=== PATIENT | female | born 1950 | race American Indian/Alaskan Native ===

== ENCOUNTER 2017-02-06 10:33 | Day surgery (SDC) | payer BC ==
[2017-02-06] MEDS ORDERED: WATER FOR IRRIG STERILE IR ONE (12:00)
[2017-02-06] MEDS ORDERED: NACL 0.9% 1000 ML 1,000 ML IV SCH (12:00)
[2017-02-06] MEDS ORDERED: WATER FOR IRRIG STERILE ONE (12:01)
--- NOTE | 2017-02-06 12:42 | Anesthesia Day of Surgery ---
Anesthesia Day of Surgery - Day of Surgery Patient Examined: Yes Patient H&P Reviewed: Yes Patient is NPO: Yes
--- NOTE | 2017-02-06 12:42 | Anesthesia Consultation ---
Anesthesia Consult and Med Hx Date of service: 02/06/17 - Airway Anesthetic Teeth Evaluation: Good ROM Head & Neck: Adequate Mental/Hyoid Distance: Adequate Mallampati Class: Class III Intubation Access Assessment: Possibly Difficult - Pulmonary Exam CTA: Yes - Cardiac Exam Cardiac Exam: RRR - Pre-Operative Health Status ASA Pre-Surgery Classification: ASA2 Proposed Anesthetic Plan: MAC - Pulmonary Hx Smoking: Yes Hx Asthma: No Hx Sleep Apnea: No - Cardiovascular System Hx Hypertension: Yes - Central Nervous System Hx Psychiatric Problems: No - Gastrointestinal Hx Gastroesophageal Reflux Disease: Yes - Hematic Hx Anemia: No - Other Systems Hx Cancer: No
[2017-02-06] MEDS ORDERED: DIPRIVAN 10 MG/ML IV ONE ×2 (12:55)
--- NOTE | 2017-02-06 13:17 | History and Physical Report ---
HISTORY OF PRESENT ILLNESS: The patient is a 66-year-old -Citizen Of [place] female who has underlying history of hypertension, prior history of colon polyps, had a colonoscopy done a few years earlier when she was noted to have a tubular adenoma. EGD also done a few years earlier and had shown presence of Alethea esophagitis. She is to have an EGD done for dyspeptic symptoms and colonoscopy to make sure that there is not any recurrence of any polyps. PAST MEDICAL HISTORY: Significant for hypertension, hyperlipidemia. MEDICATIONS: She normally uses include Dexilant, Crestor. SOCIAL HISTORY: She admits to smoking and has been advised not to do so. Denies any history of alcohol use. No cardiac issues. No flu shot. ALLERGIES: No known allergies. PHYSICAL EXAMINATION: GENERAL: She is afebrile. VITAL SIGNS: Blood pressure is 181/91, pulse is 63. Height is 5.1, weight is 158 pounds. HEENT: Shows no JVD. LUNGS: Clear to auscultation. CARDIOVASCULAR: Normal. ABDOMEN: Soft. Bowel sounds present. NEUROLOGIC: The patient is otherwise alert and oriented. IMPRESSION: History of colon polyp with a tubular adenoma, prior history of Alethea esophagitis, history of hypertension, hyperlipidemia. PLAN: To do a colonoscopy and EGD at [facility] on 02/06/2017. JOB# [id number] CASSI/TAE
--- NOTE | 2017-02-06 13:44 | Procedure Note ---
Date of procedure: 02/06/17 Pre-op diagnosis: Dyspepsia/ H/O Colon Polyp Post-op diagnosis: other (Mild,Distal esophagitis/Gastritis/Small,Cecal Polyps/ Minor,Internal Hemorrhoid) Anesthesia: MAC Surgeon: WILDA THOMPSON Estimated blood loss: minimal Pathology: list Condition: stable Disposition: same day
[2017-02-06 14:49] VITALS: BP 149/68
--- NOTE | 2017-02-06 15:05 | Operative Report ---
NAME OF PROCEDURE: Esophagogastroduodenoscopy with biopsy. INDICATIONS: A 66-year-old -[place] female with an underlying history of hypertension, hyperlipidemia, prior history of Alethea esophagitis. She lately had been having some dyspeptic symptoms. EGD was done to assess for the problem. Procedure was done after getting after informed consent with MAC anesthesia. DESCRIPTION OF PROCEDURE: Instrument was passed through hypopharynx into the esophagus, which showed mild distal esophagitis. Stomach showed some antral gastritis. Pylorus is patent. Duodenum in the first and second portion appeared normal. There was no evidence of any gastric or duodenal ulcer present. Biopsy was done from the gastric antrum and the gastric body as well as angular incisure to rule out for H. pylori and atrophic gastritis. There was minimal bleeding from the biopsy sites. No complications associated with the procedure. IMPRESSION: Dyspepsia, mild distal esophagitis, gastritis. No peptic ulcer disease noted. There was minimal bleeding from the biopsy sites. No complications associated with the procedure. Plan is to treat the patient with PPI, have the patient avoid aspirin and aspirin-related products for the next few days. Encouraged the patient to take probiotics and to do a colonoscopy to assess for any colon polyps since she has a prior history of colon polyps and advised the patient to follow up in the office in about 2 weeks' time. Thank you for the kind referral. JOB# [id number] CASSI/TAE
--- NOTE | 2017-02-06 18:01 | Post Anesthesia Evaluation ---
- Post Anesthesia Evaluation Patient Participated: Yes Airway Patent: Yes Stable Respiratory Function: Yes Nausea/Vomiting: No Temp > 96.8F: Yes Pain Manageable: Yes Adequeate Hydration: Yes Anesthesia Complications: No Block Receding Appropriately: Not Applicable Patient on Ventilator: No
--- NOTE | 2017-02-06 18:56 | Operative Report ---
INDICATIONS: This is a 66-year-old -Citizen Of [place] female with an underlying history of hypertension, hyperlipidemia with a prior history of colon polyp. Colonoscopy was done following an EGD because of some dyspeptic symptoms, which showed some mild distal esophagitis and gastritis. PROCEDURE: Colonoscopy done with MAC anesthesia. Initial rectal exam was unremarkable. Instrument was passed through rectum onto the cecum, which was identified at the ileocecal valve and the appendiceal orifice. Visualization was [id number]. Three small polyps noted in the cecum that was removed by cold biopsy. The remaining part of the cecum, ascending colon, transverse colon, descending colon, and sigmoid showed normal mucosa and the rectum showed some minor internal hemorrhoids on the retroverted view. There was minimal bleeding from the biopsy sites. No complications with the colonoscopy. IMPRESSION: Colon polyp screening. A few small cecal polyps noted that were removed by cold biopsy. Mild internal hemorrhoids. The patient will be encouraged to avoid aspirin and aspirin-related products for the next few days and follow up in the office in about 2 weeks' time. The patient will be asked to continue with Dexilant for the upper gastrointestinal findings with some mild distal esophagitis and gastritis, and also encouraged to take probiotics with advice to follow up in 2 weeks. JOB# [id number] CASSI/TAE
== END 2017-02-06 10:34 | disposition home or self-care (01) ==
LOC: GIO 10:33
DX: D12.0 Benign neoplasm of cecum (principal); K64.8 Other hemorrhoids; K29.40 Chronic atrophic gastritis without bleeding; K20.9 Esophagitis, unspecified; E78.5 Hyperlipidemia, unspecified; I10 Essential (primary) hypertension
CPT/HCPCS: 43239; 45380; 88305; 88342; J2704; J7030

== ENCOUNTER 2019-11-25 07:53 | Day surgery (SDC) | payer BC, MEDICARE ==
[~2019-11-25 07:53] MED LIST: SODIUM CHLORIDE 0.9% 1000 ML 1,000 ML IV SCH; SODIUM CHLORIDE 0.9% 1000 ML 1,000 ML ONE
[2019-11-25] MEDS ORDERED: WATER FOR IRRIG STERILE 250 ML BOTTLE IR ONE (08:05)
--- NOTE | 2019-11-25 08:48 | Anesthesia Day of Surgery ---
Anesthesia Day of Surgery - Day of Surgery Patient Examined: Yes Patient H&P Reviewed: Yes Patient is NPO: Yes
--- NOTE | 2019-11-25 08:48 | Anesthesia Consultation ---
Anesthesia Consult and Med Hx Date of service: 11/25/19 - Airway Anesthetic Teeth Evaluation: Good ROM Head & Neck: Adequate Mental/Hyoid Distance: Adequate Mallampati Class: Class II Intubation Access Assessment: Probably Good - Pulmonary Exam CTA: Yes - Cardiac Exam Cardiac Exam: RRR - Pre-Operative Health Status ASA Pre-Surgery Classification: ASA2 Proposed Anesthetic Plan: MAC - Pulmonary Hx Smoking: Yes (quit 1 yr; prev 1/4 PPD) Hx Respiratory Symptoms: No Hx Sleep Apnea: No - Cardiovascular System Hx Hypertension: Yes (took antihypertensive this morning) Hx Heart Attack/AMI: No Hx Percutaneous Transluminal Coronary Angioplasty (PTCA): No Hx Cardia Arrhythmia: No - Central Nervous System CVA: No - Gastrointestinal Hx Gastroesophageal Reflux Disease: Yes - Endocrine Hx Renal Disease: No Hx Liver Disease: No Hx Insulin Dependent Diabetes: No Hx Non-Insulin Dependent Diabetes: No Hx Thyroid Disease: No - Other Systems Hx Obesity: Yes (BMI 30) - Additional Comments Anesthesia Medical History Comments: No hx anesthetic complications.
[2019-11-25] MEDS ORDERED: propofoL 200 MG/20 ML VIAL IV ONE (08:59)
--- NOTE | 2019-11-25 09:30 | Procedure Note ---
Date of procedure: 11/25/19 Pre-op diagnosis: GERD Post-op diagnosis: other (Mild to Moderate Erosive Esophagitis/ Mild to Moderate Alethea Esophagitis/Gastric Ersoion and Gastritis) Procedure: EGD with Biopsy Anesthesia: MAC Surgeon: WILDA THOMPSON Estimated blood loss: minimal Pathology: list Specimen disposition: to lab Condition: stable Disposition: same day (Treat with PPI and Fluconazole. Avoid aspirin and NSAID for 5 days; otherwise resume home medication and follow up in 1 to 2 weeks ([phone]).)
--- NOTE | 2019-11-25 09:37 | Operative Report ---
PROCEDURE PERFORMED: Esophagogastroduodenoscopy with biopsy. INDICATIONS: This is a 69-year-old -[place] Islander female with an underlying history of hypertension, who has a prior history of Alethea esophagitis, lately has been having GERD symptoms. EGD was done to assess for the GERD symptoms. DESCRIPTION OF PROCEDURE: The procedure was done after getting informed consent with MAC anesthesia. Instrument was passed through the hypopharynx into the esophagus, which showed sdgu-ri-ejhbohwf distal erosive esophagitis as well as bezs-da-eckvidvd Alethea esophagitis. Biopsy was done from the distal esophagus as well as from the midesophagus to rule out for Alethea esophagitis and to assess for the severity of the erosive esophagitis. The stomach showed Alethea, antral erosion and gastritis, most pronounced in the antrum. Biopsy was done from the gastric antrum, gastric body and angular incisura to rule out for H. pylori and atrophic gastritis. The pylorus was patent. The duodenum in the first and second portion appeared normal. There was minimal bleeding associated with the procedure. No complications associated with the procedure. ASSESSMENT: Gastroesophageal reflux disease symptoms, ghxf-pa-virhcsbh Alethea esophagitis, gastritis, gastric erosion and mvgq-vb-vuttwriw erosive esophagitis. PLAN: Treat the patient with PPI. Give the patient a course of fluconazole. Have the patient follow up in the office in 1-2 weeks' time. The patient will be asked to avoid aspirin and aspirin-related products for the next few days. Otherwise, resume home medication. Follow up in the office in 1-2 weeks. The procedure was done in the GI lab with assistance of the GI lab team, which included SCOUT Penaloza, miguel De Jesus and with assistance of anesthesia. JOB# [id number] CASSI/TAE
--- NOTE | 2019-11-25 10:08 | Post Anesthesia Evaluation ---
- Post Anesthesia Evaluation Patient Participated: Yes Airway Patent: Yes Stable Respiratory Function: Yes Nausea/Vomiting: No Temp > 96.8F: Yes Pain Manageable: Yes Adequeate Hydration: Yes Anesthesia Complications: No
[2019-11-25 10:25] VITALS: BP 162/86
== END 2019-11-25 07:54 | disposition home or self-care (01) ==
LOC: GIO 07:53
DX: K21.00 Gastro-esophageal reflux disease with esophagitis, without bleeding (principal); K29.70 Gastritis, unspecified, without bleeding; B37.81 Candidal esophagitis; E78.00 Pure hypercholesterolemia, unspecified; I10 Essential (primary) hypertension; E66.9 Obesity, unspecified; Z98.890 Other specified postprocedural states; Z79.899 Other long term (current) drug therapy; Z68.30 Body mass index [BMI] 30.0-30.9, adult
CPT/HCPCS: 43239; 88305; 88342; J2704; J7030

== ENCOUNTER 2021-02-28 09:01 | Outpatient (CLI) | payer BC ==
--- NOTE | 2021-02-28 13:21 | Nuclear Medicine Report ---
NUCLEAR MEDICINE BONE SCAN, WHOLE BODY INDICATION: M88.9. Abnormal lab work. 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 No bone pain per the patient. TECHNIQUE: 26.3 mCi of Tc-99m MDP were injected IV. Whole body images were obtained. COMPARISON: No relevant prior imaging study available. FINDINGS: Skeletal Structures: Fairly symmetric, likely degenerative uptake is present involving the shoulders , elbows, wrists, thoracic spine and knees.. Skeletal Lesions: There is abnormal increased radiotracer uptake in multiple areas in the spine and p evangelist. There is rather intense uptake overlying the upper thoracic spine at approximate levels T1-T3. There is diffuse increased uptake at approximate level of L3. There is focal uptake at the approxima te level of L4. There is focal uptake in the right side of the sacrum and left posterior iliac bone. No calvarial lesions. Soft Tissues: Normal. Kidneys: Normal, symmetric activity. Additional Findings: None. IMPRESSION: Multiple areas of increased radiotracer uptake are identified in the thoracic spine, lumbar spine an d pelvis. This pattern is concerning for a metastatic process. The typical bone scan findings of Padg et's disease are not clearly demonstrated. There are no radiographic studies presented for comparison . Consider further evaluation and comparison with CT.. Signer Name: Chandu Briggs Jr, MD Signed: 02/28/2021 1:16 PM Workstation Name: [id number]
== END 2021-02-28 09:02 | disposition home or self-care (01) ==
LOC: NM 09:01
PROVIDERS: ATTEND Internal Medicine Endocrinology, Diabetes & Metabolism
DX: M89.9 Disorder of bone, unspecified (principal); M88.9 Osteitis deformans of unspecified bone
CPT/HCPCS: 78306; A9503

== ENCOUNTER 2021-03-15 06:52 | Day surgery (SDC) | payer BC ==
[~2021-03-15 06:52] MED LIST changes: -SODIUM CHLORIDE 0.9% 1000 ML 1,000 ML IV SCH; -SODIUM CHLORIDE 0.9% 1000 ML 1,000 ML ONE; +WATER FOR IRRIG STERILE 1,000 ML BOTTLE ONE; +WATER FOR IRRIG STERILE 250 ML BOTTLE IR ONE
[2021-03-15] MEDS ORDERED: SODIUM CHLORIDE 0.9% 1000 ML 1,000 ML IV SCH (07:00)
[2021-03-15] MEDS ORDERED: propofoL 200 MG/20 ML VIAL IV ONE ×3 (08:35→09:06)
[2021-03-15] MEDS ORDERED: LIDOCAINE MPF (2%) 20 MG/1 ML VIAL 5 ML ONE (08:35)
--- NOTE | 2021-03-15 09:00 | Anesthesia Consultation ---
Anesthesia Consult and Med Hx Date of service: 03/15/21 - Airway Anesthetic Teeth Evaluation: Good ROM Head & Neck: Adequate Mental/Hyoid Distance: Adequate Mallampati Class: Class II Intubation Access Assessment: Probably Good - Pre-Operative Health Status ASA Pre-Surgery Classification: ASA2 Proposed Anesthetic Plan: General - Pulmonary Hx Smoking: Yes (quit 3 yr; prev 1/4 PPD) Hx Respiratory Symptoms: No - Cardiovascular System Hx Hypertension: Yes (took antihypertensives this morning) Hx Heart Attack/AMI: No Hx Percutaneous Transluminal Coronary Angioplasty (PTCA): No - Central Nervous System CVA: No - Gastrointestinal Hx Gastroesophageal Reflux Disease: No (en esophagitis) - Endocrine Hx Renal Disease: No Hx Liver Disease: No Hx Insulin Dependent Diabetes: No Hx Non-Insulin Dependent Diabetes: No Hx Thyroid Disease: No - Other Systems Hx Obesity: Yes (BMI 30) - Additional Comments Anesthesia Medical History Comments: No hx anesthetic complications.
--- NOTE | 2021-03-15 09:00 | Anesthesia Day of Surgery ---
Anesthesia Day of Surgery - Day of Surgery Patient Examined: Yes Patient H&P Reviewed: Yes Patient is NPO: Yes
--- NOTE | 2021-03-15 09:32 | Procedure Note ---
Date of procedure: 03/15/21 Pre-op diagnosis: Dyspepsai/ H/O Peptic Ulcer Disease/ H/O Alethea Esophagitis/ H/O Colon Corbin Post-op diagnosis: other (Mild to ModerateCandida Esophagitis/ Mild to Moderate Erosive Esophagitis/ Gastric Erosion and Gastritis/ Multiple,Small Colon Polyps in the Proximal colon and the Proximal,Left Colon) Procedure: EGD with biopsy/ Colonoscopy with cold biopsy and use of Heat to fulgurate a polyp using the tip of the polypectomy snare Anesthesia: MAC Surgeon: WILDA THOMPSON Estimated blood loss: minimal Pathology: list Specimen disposition: to lab Condition: stable Disposition: same day (Treat with PPI and Fluconazole. Avoid aspirin, NSAID and anticoagulants for 4 days, othrwise resume home medication and F/U in 1 to 2 weeks ([phone]).)
--- NOTE | 2021-03-15 10:00 | Operative Report ---
DATE OF SURGERY: 03/15/2021 PROCEDURE: Colonoscopy. INDICATIONS: This is a 70-year-old -[place] female who prior to the colonoscopy had an EGD done, which showed acsn-mx-fjvlitsu erosive esophagitis and ixne-pk-mvvflcxh Alethea esophagitis as well as gastric erosion and gastritis. DESCRIPTION OF PROCEDURE: Colonoscopy was done after getting informed consent with MAC anesthesia. Initial rectal examination was unremarkable. The instrument was passed through the rectum onto the cecum, which was identified by the ileocecal valve and the appendiceal orifice. The cecum was also visualized on the retroverted view. There were multiple polyps, which was small, about 7-8 mm in diameter that were noted in the cecum, probably about 5 in number. These were removed by cold biopsy. There was a slightly larger polyp noted in the ascending colon, which was burned using the tip of the polypectomy snare and 2 other smaller similar 7-8 mm polyp also noted in the ascending colon that was removed by cold biopsy. The remaining part of the ascending colon, the transverse colon showed normal mucosa. There was a solitary 7-8 mm polyp noted in the descending colon that was also removed by cold biopsy with minimal bleeding. The remaining part of the left colon showed normal mucosa and the rectum appeared normal on the retroverted view. Multiple colon polyps noted, several in the proximal colon and a solitary one in the proximal descending colon. No diverticular disease or internal hemorrhoids or evidence of colitis was noted. There was minimal bleeding associated with the procedure. No complications associated with the procedure. ASSESSMENT: Colon polyp screening. Multiple colon polyps. No diverticula. No internal hemorrhoids. PLAN: To have the patient avoid aspirin and aspirin-related products. The patient will also be treated with PPI and fluconazole because of the EGD findings of erosive esophagitis, gastric erosion and Alethea esophagitis. The patient will be asked to follow up in the office in 1-2 weeks' time. Procedure was done in the GI lab with assistance of the GI lab team, which included the GI nurse, the die cast technician and with assistance of Anesthesia. TID: [id number] RECEIPT: [id number] KJ/SHE
[2021-03-15 10:15] VITALS: BP 126/69
--- NOTE | 2021-03-15 11:19 | Operative Report ---
DATE OF SURGERY: 03/15/2021 PROCEDURE PERFORMED: Esophagogastroduodenoscopy with biopsy. INDICATIONS: This is a 70-year-old -[place] female with a prior history of peptic ulcer disease. She has lately been having some dyspeptic symptoms. EGD was done to make sure there was not any significant upper GI pathology present. She also has a prior history of Alethea esophagitis. DESCRIPTION OF PROCEDURE: EGD was done after getting informed consent with MAC anesthesia. The instrument was passed through the hypopharynx into the esophagus, which showed mild to moderate Alethea esophagitis in the mid esophagus as well as mild to moderate erosive esophagitis in the distal esophagus. Photodocumentation and biopsies were done from these two areas. The stomach showed antral erosion and gastritis. No ulcers were noted in the stomach within the straight or the retroverted view. The pylorus was patent. The duodenum in the first and second portion appeared normal. Biopsy was done from the gastric antrum, gastric body and angular incisura to rule out for H. pylori and atrophic gastritis. ASSESSMENT: History of peptic ulcer disease, none now; mild to moderate erosive esophagitis, mild to moderate Alethea esophagitis, gastritis, gastric erosion. PLAN: To treat the patient with PPI as well as fluconazole. Have the patient avoid aspirin and aspirin-related products and follow up in the office in 1-2 weeks' time. The patient is also to have a colonoscopy done because of prior history of colon polyps. Procedure was done in the GI lab with the assistance of the GI lab team, which included the GI nurse, the technical mgr and with the assistance of anesthesia. TID: [id number] RECEIPT: [id number] CASSI/STEPHANIE/BOGDAN
== END 2021-03-15 09:50 | disposition home or self-care (01) ==
LOC: GIO 06:52
DX: Z12.11 Encounter for screening for malignant neoplasm of colon (principal); K63.89 Other specified diseases of intestine; K31.89 Other diseases of stomach and duodenum; D12.4 Benign neoplasm of descending colon; D12.0 Benign neoplasm of cecum; D12.2 Benign neoplasm of ascending colon; K27.9 Peptic ulcer, site unspecified, unspecified as acute or chronic, without hemorrhage or perforation; B37.81 Candidal esophagitis; I10 Essential (primary) hypertension; E78.5 Hyperlipidemia, unspecified; K21.00 Gastro-esophageal reflux disease with esophagitis, without bleeding; Z20.822 Contact with and (suspected) exposure to COVID-19; Z98.890 Other specified postprocedural states; Z79.899 Other long term (current) drug therapy; Z87.891 Personal history of nicotine dependence; Z86.010 Personal history of colon polyps
CPT/HCPCS: 43239; 45380; 45385; 88305; 88312; 88342; J2704; J3490; J7030; U0003; J7120; Q0162

== ENCOUNTER 2021-10-15 13:58 | Outpatient (CLI) | payer BC ==
--- NOTE | 2021-10-15 15:50 | Cat Scan Report ---
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 Soft tissue sarcoma surveillance exam TECHNIQUE: Axial imaging performed through the chest without the use of intravenous contrast. All C T scans at this location are performed using CT dose reduction for ALARA by means of automated exposu re control. COMPARISON: CT chest from 02/07/1940 FINDINGS: Normal heart size. Moderate coronary artery calcification. No pathologic mediastinal adeno niesha. Calcified granuloma in the left lower lobe. Faint groundglass nodule measuring 5 mm in the left upper lobe on image 31 of series 2. This finding was on image 69 of series 2 of the previous exam. Lungs a re otherwise clear. Limited imaging of the upper abdomen shows nothing acute. No chest wall abnormality identified. Several Shoddy left greater than right axillary lymph nodes are present. Moderately advanced degenerative changes are present in the spine and the shoulders with patchy scler osis again seen involving a few of the thoracic spine vertebral bodies, similar to slightly more coal escent since the previous exam. IMPRESSION: 1. Groundglass nodule in the right upper lobe measuring 5 mm has not appreciably changed since 2013. 2. Patchy sclerosis again seen in the spine. Signer Name: Thaddeus Maciel MD Signed: 10/15/2021 3:46 PM Workstation Name: [id number]
== END 2021-10-15 13:59 | disposition home or self-care (01) ==
LOC: CT 13:58
DX: C49.12 Malignant neoplasm of connective and soft tissue of left upper limb, including shoulder (principal); I25.10 Atherosclerotic heart disease of native coronary artery without angina pectoris; J84.10 Pulmonary fibrosis, unspecified; R91.1 Solitary pulmonary nodule; G95.89 Other specified diseases of spinal cord; M47.816 Spondylosis without myelopathy or radiculopathy, lumbar region
CPT/HCPCS: 71250